=== PATIENT | male | born 1930 | race African-American/Black ===

== ENCOUNTER 2017-11-28 06:41 | Day surgery (SDC) | payer MEDICARE, MEDICAID ==
[~2017-11-28] VITALS: Ht 180.3 cm; Wt 76.2 kg
[~2017-11-28 06:41] MED LIST: ALLO100T PO; ASPI-1159 PO; ATOR10TA69 PO; BISA10SU8 RC; CHOL400D2 PO; DIVA125C2 PO; DOCU-150 PO; GLIP5TAB12 PO; HYDR-4134 PO; INSU100V33 SQ; MELA3TAB71 PO; MOM PO; MULT-1146 PO; NAPHADR OP; POLY15DR55 OP; POLY17PO3 PO; TAMS0.4C31 PO
[2017-11-28] MEDS ORDERED: FENTANYL CITRATE/PF 50MCG/ML 2ML VIAL IV PRN (06:45)
[2017-11-28] MEDS ORDERED: PROPOFOL 200MG/20ML VIAL IV ONE ×2 (08:28→10:56)
[2017-11-28] MEDS ORDERED: LIDOCAINE HCL/PF 1% 10 MG/ML 5ML VIAL ONE (08:28)
[2017-11-28] MEDS ORDERED: SODIUM CHLORIDE 0.9% 1,000 ML IV SCH (08:30)
[2017-11-28] MEDS ORDERED: TOBRAMYCIN/DEXAMETHASONE OPTH DROPS 2.5ML OP ONE (09:15)
[2017-11-28] MEDS ORDERED: HYALURONATE SODIUM 14 MG/ML 0.85ML SYRINGE IO ONE (09:31)
[2017-11-28] MEDS ORDERED: GLYCOPYRROLATE 0.2 MG/ML 2ML VIAL ONE (09:39)
[2017-11-28] MEDS ORDERED: DIPHENHYDRAMINE 50MG/ML VIAL ONE (10:56)
[2017-11-28] MEDS ORDERED: BALANCED SALT IRRIG SOLN 15ML ONE (14:59)
[2017-11-28] MEDS ORDERED: BUPIVACAINE HCL/PF 0.75% (7.5MG/ML) 10ML ONE (14:59)
[2017-11-28] MEDS ORDERED: PREDNISOLONE ACETATE 1% OPHTH DROPS 1ML ONE (14:59)
[2017-11-28] MEDS ORDERED: NEO/POLYMYX B SULF/DEXAMETH OPHTH OINT 3.5GM ONE (14:59)
[2017-11-28] MEDS ORDERED: LIDOCAINE HCL 2%/EPINEPHRINE 1:100,000 20 ML VIAL INFIL ONE (14:59)
[2017-11-28] MEDS ORDERED: TROPICAMIDE 1% OPHTH DROPS 15ML ONE (14:59)
== END 2017-11-28 14:10 | disposition home or self-care (01) ==
LOC: OR 06:41
PROVIDERS: ATTEND Ophthalmology
DX: H02.132 Senile ectropion of right lower eyelid (principal); H10.401 Unspecified chronic conjunctivitis, right eye; I13.0 Hypertensive heart and chronic kidney disease with heart failure and stage 1 through stage 4 chronic kidney disease, or unspecified chronic kidney disease; E11.22 Type 2 diabetes mellitus with diabetic chronic kidney disease; N18.9 Chronic kidney disease, unspecified; I50.9 Heart failure, unspecified; Z79.82 Long term (current) use of aspirin; Z79.899 Other long term (current) drug therapy; Z79.84 Long term (current) use of oral hypoglycemic drugs; Z79.4 Long term (current) use of insulin
CPT/HCPCS: 67916; 82962; 88304; 88305; J1200; J3490; J7030; J2704; J7120